=== PATIENT | female | born 1980 | race American Indian/Alaskan Native ===

== ENCOUNTER 2021-08-04 23:49 | Emergency (ER) | payer MEDICAID ==
[2021-08-04] MEDS ORDERED: HYDROcodone/ACETAMINOPHEN 5-325 MG TAB PO ONE (23:56)
--- NOTE | 2021-08-05 00:03 | Event Note ---
ED Screening Note Date of service: 08/04/21 Time: 23:57 ED Screening Note: Patient 41-year-old -Citizen Of The [place] female with history of fibroids, chronic anemia, intrauterine, status post uterine ablation on 1 month ago with chronic menorrhagia presents tonight for lower abdominal cramping radiating to suprapubic with menorrhagia tonight. Patient denies fevers or chills, there is no shortness of breath, no chest pain, no dysuria, frequency or urgency. No CVA tenderness no chest pain or shortness of breath. Patient states scheduled for VAL in 1 month. Current treatment regimen is progesterone 200 mg p.o. nightly This initial assessment/diagnostic orders/clinical plan/treatment(s) is/are subject to change based on patients health status, clinical progression and re- assessment by fellow clinical providers in the ED. Further treatment and workup at subsequent clinical providers discretion. Patient/guardian urged not to elope from the ED as their condition may be serious if not clinically assessed and managed. Initial orders include: cbc, bmp, ua,
[2021-08-05 00:21] LABS: Basophils # (Auto) 0.1 K/mm3 (0.0-0.1); Basophils % (Auto) 1.3 % (0.0-1.8); Eosinophils # (Auto) 0.1 K/mm3 (0.0-0.4); Eosinophils % (Auto) 1.7 % (0.0-4.3); Hematocrit 40.5 % (30.3-42.9); Hemoglobin 13.4 gm/dl (10.1-14.3); Lymphocytes # (Auto) 3.4 K/mm3 (1.2-5.4); Lymphocytes % (Auto) 44.6 % (13.4-35.0); Mean Corpuscular HGB Conc 33 % (30-34); Mean Corpuscular Volume 80 fl (79-97); Monocytes # (Auto) 0.5 K/mm3 (0.0-0.8); Monocytes % (Auto) 6.8 % (0.0-7.3); Platelet Count 408 K/mm3 (140-440); Red Cell Distribution Width 15.2 % (13.2-15.2)
[2021-08-05 00:39] LABS: Blood Urea Nitrogen 12 mg/dL (7-17); Calcium 9.7 mg/dL (8.4-10.2); Hemolysis Index 119
[2021-08-05 00:40] LABS: BUN/Creatinine Ratio 17
--- NOTE | 2021-08-05 00:41 | Emergency Department Report ---
ED Female HPI - General Chief complaint: Abdominal Pain Stated complaint: ABD PAIN VAGINAL BLEEDING Time Seen by Provider: 08/05/21 00:38 Source: patient Mode of arrival: Ambulatory Limitations: No Limitations - History of Present Illness Initial comments: Patient 41-year-old -Citizen Of [place] female with history of fibroids, chronic anemia, intrauterine, status post uterine ablation on 1 month ago with chronic menorrhagia presents tonight for lower abdominal cramping radiating to suprapubic with menorrhagia tonight. Patient denies fevers or chills, there is no shortness of breath, no chest pain, no dysuria, frequency or urgency. No CVA tenderness no chest pain or shortness of breath. Patient states scheduled for VAL in 1 month. Current treatment regimen is progesterone 200 mg p.o. nightly MD Complaint: vaginal bleeding - Related Data Previous Rx's Medication Instructions Recorded Last Taken Type traMADoL [Ultram] 50 mg PO Q6HR PRN #12 tablet 08/05/21 Unknown Rx Allergies Allergy/AdvReac Type Severity Reaction Status Date / Time No Known Allergies Allergy Verified 08/04/21 23:56 ED Review of Systems ROS: Stated complaint: ABD PAIN VAGINAL BLEEDING Other details as noted in HPI Constitutional: denies: chills, fever Eyes: denies: eye pain, eye discharge, vision change ENT: denies: ear pain, throat pain Respiratory: denies: cough, shortness of breath, wheezing Cardiovascular: denies: chest pain, palpitations Endocrine: no symptoms reported Gastrointestinal: abdominal pain. denies: nausea, vomiting, diarrhea, constipation, melena Genitourinary: abnormal menses. denies: urgency, dysuria, frequency, hematuria, discharge, dyspareunia Musculoskeletal: denies: back pain, joint swelling, arthralgia Skin: denies: rash, lesions Neurological: denies: headache, weakness, paresthesias Psychiatric: as per HPI Hematological/Lymphatic: denies: easy bleeding, easy bruising ED Past Medical Hx - Past Medical History Previous Medical History?: No Additional medical history: anemia - Surgical History Past Surgical History?: Yes Additional Surgical History: tubal ligation - Social History Smoking Status: Never Smoker - Medications Home Medications: Home Medications Medication Instructions Recorded Confirmed Last Taken Type traMADoL [Ultram] 50 mg PO Q6HR PRN #12 tablet 08/05/21 Unknown Rx ED Physical Exam - General Limitations: No Limitations General appearance: alert, in no apparent distress - Head Head exam: Present: atraumatic, normocephalic - Eye Eye exam: Present: normal appearance, EOMI Pupils: Present: normal accommodation - ENT ENT exam: Present: mucous membranes moist - Neck Neck exam: Present: normal inspection, full ROM. Absent: tenderness - Respiratory Respiratory exam: Present: normal lung sounds bilaterally. Absent: respiratory distress, wheezes, chest wall tenderness - Cardiovascular Cardiovascular Exam: Present: regular rate, normal rhythm, normal heart sounds - GI/Abdominal GI/Abdominal exam: Present: soft, normal bowel sounds. Absent: distended, tenderness, guarding, rebound, rigid, bruit, hernia - Rectal Rectal exam: Present: deferred - External exam: Present: other (exam deferred ) - Extremities Exam Extremities exam: Present: normal inspection, normal capillary refill. Absent: tenderness - Back Exam Back exam: Present: normal inspection, full ROM. Absent: CVA tenderness (R), CVA tenderness (L) - Neurological Exam Neurological exam: Present: alert, oriented X3, CN II-XII intact, normal gait - Psychiatric Psychiatric exam: Present: normal affect, normal mood - Skin Skin exam: Present: warm, dry, intact, normal color. Absent: rash ED Course Vital Signs 08/04/21 08/05/21 23:50 01:36 Pulse Rate 95 H Respiratory 18 16 Rate Blood Pressure 157/97 O2 Sat by Pulse 97 96 Oximetry ED Medical Decision Making - Lab Data Result diagrams: 08/05/21 00:09 08/05/21 00:09 Labs 08/05/21 00:09 WBC 7.7 RBC 5.10 H Hgb 13.4 Hct 40.5 MCV 80 MCH 26 L MCHC 33 RDW 15.2 Plt Count 408 Lymph % (Auto) 44.6 H [place] % (Auto) 6.8 Eos % (Auto) 1.7 Baso % (Auto) 1.3 Lymph # (Auto) 3.4 [place] # (Auto) 0.5 Eos # (Auto) 0.1 Baso # (Auto) 0.1 Seg Neutrophils % 45.6 Seg Neutrophils # 3.5 - Radiology Data Radiology results: report reviewed, image reviewed ULTRASOUND PELVIS INDICATION / CLINICAL INFORMATION: pelvic pain. TECHNIQUE: Transabdominal. Duplex Color Doppler used: Yes. COMPARISON: None available FINDINGS: UTERUS: The uterus measures 10.2 cm. The uterus demonstrates a normal sonographic appearance. The endometrial stripe measures 1.3 cm. RIGHT ADNEXA: No significant ovarian cyst or mass. Normal color Doppler blood flow. LEFT ADNEXA: No significant ovarian cyst or mass. Normal color Doppler blood flow. URINARY BLADDER: No significant abnormality. FREE FLUID: None. ADDITIONAL FINDINGS: None. IMPRESSION: No significant abnormality of the uterus or ovaries. Signer Name: Nathan Barnhart MD Signed: 08/05/2021 3:27 AM Workstation Name: [id number] - Medical Decision Making Ultrasound is normal, this is a UB. Patient will follow-up with [facility] doctor as scheduled and complete evaluation for a hysterectomy. H&H is normal. Patient verbalized agreement and understanding with discharge plan. Patient will be DC 'd home in stable condition at this time Critical care attestation.: If time is entered above; I have spent that time in minutes in the direct care of this critically ill patient, excluding procedure time. ED Disposition Clinical Impression: Abnormal uterine bleeding (AUB) Disposition: 01 HOME / SELF CARE / HOMELESS Is pt being admited?: No Does the pt Need Aspirin: No Condition: Stable Instructions: Abdominal Pain (ED), Abnormal Uterine Bleeding, Dysfunctional Uterine Bleeding Additional Instructions: Take medications as prescribed, follow-up with your [facility] doctor as scheduled. Return to emergency should symptoms worsen. Prescriptions: traMADoL [Ultram] 50 mg PO Q6HR PRN #12 tablet PRN Reason: Pain Referrals: LUCILA ESPINOZA MD [Staff Physician] - 3-5 Days Forms: Work/School Release Form(ED) Time of Disposition: 03:58
[2021-08-05] MEDS ORDERED: SODIUM CHLORIDE 0.9% 1000 ML 1,000 ML IV ONE (00:47)
[2021-08-05] MEDS ORDERED: MORPHINE 4 MG/1 ML INJ IV ONE (00:47)
[2021-08-05] MEDS ORDERED: ONDANSETRON 4 MG/2 ML INJ IV ONE (00:47)
--- NOTE | 2021-08-05 03:32 | Ultrasound Report ---
ULTRASOUND PELVIS INDICATION / CLINICAL INFORMATION: pelvic pain. TECHNIQUE: Transabdominal. Duplex Color Doppler used: Yes. COMPARISON: None available FINDINGS: UTERUS: The uterus measures 10.2 cm. The uterus demonstrates a normal sonographic appearance. The en dometrial stripe measures 1.3 cm. RIGHT ADNEXA: No significant ovarian cyst or mass. Normal color Doppler blood flow. LEFT ADNEXA: No significant ovarian cyst or mass. Normal color Doppler blood flow. URINARY BLADDER: No significant abnormality. FREE FLUID: None. ADDITIONAL FINDINGS: None. IMPRESSION: No significant abnormality of the uterus or ovaries. Signer Name: Nathan Barnhart MD Signed: 08/05/2021 3:27 AM Workstation Name: [id number]
[2021-08-05 04:13] VITALS: BP 132/82
== END 2021-08-05 04:25 | disposition home or self-care (01) ==
LOC: ED 23:49
DX: N93.9 Abnormal uterine and vaginal bleeding, unspecified (principal); D64.9 Anemia, unspecified; Z98.890 Other specified postprocedural states
CPT/HCPCS: 36415; 76856; 80048; 85025; 96361; 96374; 96375; 99284; J2270; J2405; J7030